=== PATIENT | male | born 1990 | race Caucasian/White ===

== ENCOUNTER 2016-09-14 03:42 | Emergency (ER) | payer BC, OTHER ==
[~2016-09-14] VITALS: Ht 167.6 cm; Wt 63.5 kg
[~2016-09-14 03:42] MED LIST: BACTRIM DS TAB1 EAC1 PO; BACTRIM DS TAB1 EACH PO; BUPRENORPHINE HC8 MG SL; KEFLEX500 MG PO
[2016-09-14] MEDS ORDERED: BACTRIM DS TAB1 EACH PO (04:51)
[2016-09-14 05:04] VITALS: BP 132/70
== END 2016-09-14 05:05 | disposition home or self-care (01) ==
LOC: ER 03:42
DX: L02.91 Cutaneous abscess, unspecified (principal); L03.116 Cellulitis of left lower limb; F19.10 Other psychoactive substance abuse, uncomplicated

== ENCOUNTER 2017-02-17 12:02 | Inpatient (IN) | payer OTHER ==
[~2017-02-17] VITALS: Ht 167.6 cm; Wt 63.5 kg
--- NOTE | ~2017-02-17 | HC ---
[facility] [address] [place] [address] CONSULTATION Name: CODEY ELIZABETH Room #: 536-P ADM IN M.R.#: [id number] Admission: 02/17/17 Attend Phys: Nedra Kirby MD Discharge: Date of : 89 Report #: [id number] THIS REPORT FOR: //name// CC: HOLDEN physician/PCP Nedra Kirby HISTORY OF PRESENT ILLNESS: This 26-year-old gentleman is a chronic IV drug abuser. He presents with right forearm pain and swelling, which he thinks started after an injection in that region 5 days ago. Symptoms increased 3 days ago, and he was admitted yesterday. He has been afebrile, but has significant swelling and discomfort over the right forearm consistent with cellulitis or possible abscess. A CT scan does not reveal evidence of abscess or fluid collection, but there is significant generalized soft tissue edema consistent with cellulitis and myositis. At the time of my evaluation, he is just leaving to go for MRI study as I have previously ordered. PHYSICAL EXAMINATION: GENERAL: He is afebrile and alert and oriented and does not seem to have any signs of sepsis. EXTREMITIES: He does, however, have significant right forearm discomfort. There is some redness and significant swelling over the upper medial forearm extending to the elbow and the distal medial arm. This area is tender to touch. There is no obvious fluid collection, but rather more generalized edema suggesting cellulitis. He has good range of motion of the elbow without joint discomfort. There seems to be normal movement of the wrist, hand and fingers. Neurologic assessment including sensation and floor cashier strength appear to be normal. Distal vascular status appears to be normal. ASSESSMENT AND PLAN: The findings do not suggest compartment syndrome, but are consistent with rather severe edema and significant cellulitis. It is more difficult to assess whether there might be an underlying fluid collection or abscess which might benefit from surgical drainage. His recent CT scan does not confirm an abscess or localized fluid collection, but I think MRI study would still be appropriate and helpful to clarify this issue. He is currently on IV antibiotics. He remains afebrile, and white count is 10,200. I do not believe he is septic, but I am concerned about the possibility of abscess. We will see what the results of the MRI show and then consider further treatment measures. <ELECTRONICALLY SIGNED> By: Sedrick Dickinson MD 02/19/17 0745 [id number] Sedrick Dickinson MD /nt
--- NOTE | ~2017-02-17 | HC ---
[facility] [address] [place] [address] CONSULTATION Name: CODEY ELIZABETH Room #: 536-P ADM IN M.R.#: [id number] Admission: 02/17/17 Attend Phys: Nedra Kirby MD Discharge: Date of : 89 Report #: [id number] THIS REPORT FOR: //name// CC: HOLDEN physician/PCP Nedra Kirby DATE OF SERVICE: 02/19/2017 INFECTIOUS DISEASE CONSULTATION REASON FOR CONSULTATION: I was asked to evaluate concerning right upper extremity soft tissue infection. HISTORY OF PRESENT ILLNESS: The patient is a 26-year-old IV drug abuser. He presents to the Emergency Room on 02/17/2017 with increased pain and swelling in his right arm. He had been injecting IV drugs and states that he went into the soft tissue. No definite chills or sweats, although he has had low-grade fever. Pain is moderate in severity. He has had increased swelling, mostly in the elbow and forearm region. After 48 hours of antibiotic therapy, he continues to have swelling and discomfort. Imaging studies including MRI scan shows a small amount of fluid between the biceps and pronator teres. No definite abscess. No joint effusion or bony changes. He has had no headache, cardiopulmonary complaints, GI or complaints. ALLERGIES: None known. MEDICATIONS: Include vancomycin. PAST MEDICAL HISTORY: Unremarkable. FAMILY HISTORY: Noncontributory. SOCIAL HISTORY: Smokes cigarettes and marijuana, does heroin, works as a ____, uses alcohol. REVIEW OF SYSTEMS: Noted above. PHYSICAL EXAMINATION: VITAL SIGNS: Afebrile, hemodynamically stable. GENERAL: He is alert, cooperative and pleasant, in no acute distress. HEENT: Unremarkable. NECK: Supple. LUNGS: Clear. HEART: Regular. ABDOMEN: Soft and nontender. EXTREMITIES: Right upper extremity with marked swelling, induration, erythema [facility] [address] [place] [address] CONSULTATION Name: CODEY ELIZABETH Room #: 536-P [facility] IN ..#: [id number] Admission: 02/17/17 Attend Phys: Nedra Kirby MD Discharge: Date of : 89 Report #: [id number] and tenderness involving the antecubital fossa and forearm. Pulses in the wrist, sensation in the hand, and strength in the hand was normal. Capillary refill normal. I could not locate any fluctuant area per se. Range of motion was limited in extension. Flexion was unremarkable. No axillary adenopathy. LABORATORY STUDIES: Vancomycin trough was 9. MRI scan as noted above. Blood cultures are negative to date. Hemoglobin 12.2, white count 10.2, platelet count 299,000. Sodium 139, potassium 3.9, bicarbonate 27, creatinine 0.8, lactate 1.8. Drug screen pending. Alcohol level is 34. IMPRESSION: Soft tissue infection involving the right upper extremity after injection of IV drug. It looks like he is starting to form an abscess. PLAN: Recommend continuing antibiotic therapy for MRSA as well as gram negatives. May need to wait another 24-48 hours just to form a reasonable abscess in order to drain. We will discuss further with Orthopedic Surgery. <ELECTRONICALLY SIGNED> By: Shakir Zuleta MD 02/19/17 2149 [id number] Shakir Zuleta MD /nt
[2017-02-17 12:05] VITALS: BP 138/67
[2017-02-17 13:09] LABS: ABSOLUTE NEUTROPHILS 7.7 thou/uL (1.4-8.2); BASOPHILS 0.5 % (0.0-2.0); EOSINOPHILS 0.5 % (0.0-3.0); HEMATOCRIT 40.7 % (42.0-52.0); HEMOGLOBIN 14.2 gm/dL (14.0-18.0); LYMPHOCYTES 21.2 % (24.0-44.0); MCH 31.2 pg (26.0-34.0); MCHC 34.8 g/dL (28.0-37.0); MCV 89.8 fL (80.0-100.0); MONOCYTES 8.7 % (1.0-8.0); PLATELET COUNT 331 thou/uL (150-400); POLYS 69.1 % (36.0-66.0); RBC 4.53 mil/uL (4.50-6.00); RDW 12.5 % (10.5-14.5); WBC 11.1 thou/uL (4.0-11.0)
[2017-02-17 13:15] LABS: MANUAL DIFF NO
[2017-02-17 13:24] LABS: CALCIUM 9.3 mg/dL (8.5-10.1); CREATININE 0.8 mg/dL (0.7-1.3); POTASSIUM 3.7 mmol/L (3.5-5.1)
[2017-02-17 15:00] VITALS: BP 121/76
[2017-02-17 15:05] VITALS: BP 108/68
[2017-02-17 19:50] VITALS: BP 102/52
[2017-02-17 23:38] VITALS: BP 118/53
[2017-02-18 04:00] VITALS: BP 111/54
[2017-02-18 05:42] LABS: HEMATOCRIT 34.7 % (42.0-52.0); MCHC 35.2 g/dL (28.0-37.0); MCV 90.8 fL (80.0-100.0); RBC 3.83 mil/uL (4.50-6.00); RDW 12.6 % (10.5-14.5); WBC 10.2 thou/uL (4.0-11.0)
[2017-02-18 05:59] LABS: CALCIUM 8.3 mg/dL (8.5-10.1); CREATININE 0.8 mg/dL (0.7-1.3); POTASSIUM 3.9 mmol/L (3.5-5.1)
[2017-02-18 06:05] LABS: HEMOGLOBIN 12.2 gm/dL (14.0-18.0)
[2017-02-18 08:01] VITALS: BP 109/49
[2017-02-18 20:00] VITALS: BP 105/70
[2017-02-19 04:00] VITALS: BP 107/58
[2017-02-19 07:22] VITALS: BP 111/58
[2017-02-19 16:45] VITALS: BP 126/60
[2017-02-19 17:47] LABS: ABSOLUTE NEUTROPHILS 4.2 thou/uL (1.4-8.2); BASOPHILS 0.9 % (0.0-2.0); EOSINOPHILS 2.8 % (0.0-3.0); HEMATOCRIT 38.8 % (42.0-52.0); HEMOGLOBIN 13.3 gm/dL (14.0-18.0); LYMPHOCYTES 37.3 % (24.0-44.0); MCH 31.3 pg (26.0-34.0); MCHC 34.2 g/dL (28.0-37.0); MCV 91.7 fL (80.0-100.0); MONOCYTES 7.6 % (1.0-8.0); PLATELET COUNT 351 thou/uL (150-400); POLYS 51.4 % (36.0-66.0); RBC 4.24 mil/uL (4.50-6.00); RDW 12.6 % (10.5-14.5); WBC 8.2 thou/uL (4.0-11.0)
[2017-02-19 17:50] LABS: MANUAL DIFF NO
[2017-02-19 17:55] LABS: CALCIUM 9.1 mg/dL (8.5-10.1); CREATININE 0.7 mg/dL (0.7-1.3)
[2017-02-19 19:26] VITALS: BP 103/61
[2017-02-20 00:08] LABS: AMP/METHAMP Negative (Negative); BARBITURATES Negative (Negative); BENZODIAZEPINES Negative (Negative); COCAINE Negative (Negative); METHADONE Negative (Negative); OPIATES Negative (Negative); PCP Negative (Negative); THC POSITIVE (Negative)
[2017-02-20 04:14] VITALS: BP 106/59
[2017-02-20 07:15] VITALS: BP 116/65
[2017-02-20 15:44] VITALS: BP 142/58
[2017-02-20 19:31] VITALS: BP 126/51
[2017-02-21 07:57] VITALS: BP 119/36
[2017-02-21 15:58] VITALS: BP 143/47
[2017-02-21 19:05] VITALS: BP 114/53
[2017-02-22 03:38] LABS: HEMOGLOBIN 12.6 gm/dL (14.0-18.0); MCH 30.9 pg (26.0-34.0); MCHC 34.2 g/dL (28.0-37.0); MCV 90.4 fL (80.0-100.0); RBC 4.09 mil/uL (4.50-6.00); RDW 12.2 % (10.5-14.5); WBC 7.6 thou/uL (4.0-11.0)
[2017-02-22 05:50] VITALS: BP 108/52
[2017-02-22 07:15] VITALS: BP 110/50
[2017-02-22 15:30] VITALS: BP 112/50
[2017-02-22 19:13] VITALS: BP 115/57
[2017-02-23 03:00] VITALS: BP 109/55
[2017-02-23 07:15] VITALS: BP 106/55
[2017-02-23] MEDS ORDERED: LEVAQUIN 750 M750 MG PO (10:36)
[2017-02-23] MEDS ORDERED: CLEOCIN HCL150 MG PO (10:36)
[2017-02-23 12:08] VITALS: BP 106/55
[2017-02-23 13:40] VITALS: BP 106/55
== END 2017-02-23 12:55 | disposition home or self-care (01) | DRG 603 ==
LOC: ER 12:02 → 5S 13:56 → EROBS 13:56 → 5S 15:07
PROVIDERS: Hospitalist; Internal Medicine Endocrinology, Diabetes & Metabolism; Nurse Practitioner; Nurse Practitioner Family
DX: L03.113 Cellulitis of right upper limb (principal); E87.1 Hypo-osmolality and hyponatremia; F17.210 Nicotine dependence, cigarettes, uncomplicated; M60.9 Myositis, unspecified; F11.10 Opioid abuse, uncomplicated; F12.10 Cannabis abuse, uncomplicated; Z71.51 Drug abuse counseling and surveillance of drug abuser; Z71.6 Tobacco abuse counseling
CPT/HCPCS: 10785